=== PATIENT | female | born 1975 | race African-American/Black ===

== ENCOUNTER 2017-05-14 16:02 | Emergency (ER) | payer MEDICAID ==
[~2017-05-14] VITALS: Ht 170.2 cm; Wt 136.2 kg
[~2017-05-14 16:02] MED LIST: ASPI-247 PO; CIPR-173; CYA100I IM; PYRIDIUM; SIMV-13 PO
[2017-05-14 17:30] VITALS: BP 138/94
== END 2017-05-14 18:16 | disposition home or self-care (01) ==
LOC: ER 16:07
DX: J20.9 Acute bronchitis, unspecified (principal); H66.91 Otitis media, unspecified, right ear
CPT/HCPCS: 71020

== ENCOUNTER 2022-08-23 07:29 | Emergency (ER) | payer OTHER, MEDICAID ==
[~2022-08-23] VITALS: Ht 170.2 cm; Wt 163.0 kg
[2022-08-23 08:55] VITALS: BP 153/97
[2022-08-23] MEDS ORDERED: AZIT500T66 PO (09:38)
[2022-08-23] MEDS ORDERED: BENZ100C19 PO (09:38)
== END 2022-08-23 09:59 | disposition home or self-care (01) ==
LOC: ER 07:29
DX: J02.9 Acute pharyngitis, unspecified (principal); J20.9 Acute bronchitis, unspecified; F41.9 Anxiety disorder, unspecified; E78.5 Hyperlipidemia, unspecified; Z86.73 Personal history of transient ischemic attack (TIA), and cerebral infarction without residual deficits
CPT/HCPCS: 71045

== ENCOUNTER 2022-10-07 13:01 | Inpatient (IN) | payer OTHER, MEDICAID ==
[~2022-10-07] VITALS: Ht 170.2 cm; Wt 163.0 kg
[~2022-10-07 13:01] MED LIST changes: +AZIT500T66 PO; +BENZ100C19 PO
[2022-10-07 13:57] LABS: Albumin 3.3 g/dL (3.4-5.0); Calcium 8.7 mg/dL (8.5-10.1); Magnesium 2.2 mg/dL (1.6-2.6); Potassium 4.1 mmol/L (3.5-5.1)
[2022-10-07 13:59] LABS: INR 0.96 (0.9-1.15); Partial Thromboplastin Time 27.3 sec (24.6-33.4)
[2022-10-07 14:02] LABS: BUN/Creatinine Ratio 11.3; Bilirubin, Total 0.4 mg/dL (0.2-1.0); Total Protein 6.7 g/dL (6.4-8.2)
[2022-10-07 14:09] LABS: Basophils # (auto) 0.1 10 ^3/uL (0-0.2); Eosinophils # (auto) 0.2 10 ^3/uL (0-0.8); Eosinophils % (auto) 3.8 % (0.0-7.0); Hematocrit 38.6 % (36.0-46.0); Hemoglobin 12.3 g/dL (12.2-16.2); Lymphocytes # (auto) 2.2 10 ^3/uL (0.4-5.4); Lymphocytes % (auto) 39.2 % (10.0-50.0); Mean Corpuscular Hemoglobin 30.1 pg (28.0-32.0); Monocytes # (auto) 0.5 10 ^3/uL (0-1.3); Monocytes % (auto) 8.5 % (0.0-12.0); Neutrophils # (auto) 2.6 10 ^3/uL (1.6-8.6); Neutrophils % (auto) 47.5 % (37.0-80.0); Red Cell Distribution Width 14.3 % (11.8-14.3); White Blood Cell 5.6 10^3/uL (4.4-10.8)
[2022-10-07 14:18] LABS: Urine Bacteria NONE SEEN /hpf (None Seen); Urine Blood Negative /uL (Negative); Urine Specific Gravity 1.004 (1.001-1.035); Urine WBC 1 /hpf (0 - 5)
[2022-10-07] MEDS ORDERED: hydrALAZINE HCL 20 MG/ML VL IV PRN (20:45)
[2022-10-07] MEDS ORDERED: ACETAMINOPHEN 325 MG TAB PO PRN (20:45)
[2022-10-07] MEDS ORDERED: PANTOPRAZOLE 40 MG/10 ML VIAL INJ IV ONE (20:45)
[2022-10-07] MEDS ORDERED: NITROGLYCERIN 0.4 MG SL TAB SL PRN (20:45)
[2022-10-07] MEDS ORDERED: MORPHINE SULFATE INJ 2 MG/ml SYRG IV PRN (20:45)
[2022-10-07] MEDS ORDERED: SODIUM CHLORIDE 0.9% 1,000 ML IV SCH (20:45)
[2022-10-07 21:10] LABS: Cholesterol 244 mg/dL (< 200)
[2022-10-07 21:13] LABS: HDL Cholesterol 58 mg/dL (40-59); LDL Cholesterol 177 mg/dL (< 100); Triglycerides 130 mg/dL (< 150)
[2022-10-07] MEDS: ENOXAPARIN SOD 60 MG/0.6 ML SYRINGE SC SCH (22:34)
[2022-10-08 05:01] LABS: Basophils # (auto) 0.1 10 ^3/uL (0-0.2); Basophils % (auto) 0.9 % (0.0-2.0); Eosinophils # (auto) 0.2 10 ^3/uL (0-0.8); Eosinophils % (auto) 3.6 % (0.0-7.0); Hematocrit 35.9 % (36.0-46.0); Hemoglobin 11.6 g/dL (12.2-16.2); Lymphocytes # (auto) 1.9 10 ^3/uL (0.4-5.4); Lymphocytes % (auto) 32.7 % (10.0-50.0); Mean Corpuscular Hemoglobin 29.4 pg (28.0-32.0); Mean Corpuscular Hgb Conc. 32.3 g/dL (32.0-36.0); Mean Corpuscular Volume 91.1 fL (80.0-100.0); Monocytes # (auto) 0.4 10 ^3/uL (0-1.3); Monocytes % (auto) 7.3 % (0.0-12.0); Neutrophils # (auto) 3.2 10 ^3/uL (1.6-8.6); Neutrophils % (auto) 55.5 % (37.0-80.0); Nucleated Red Blood Cells % 0.1 %; Red Blood Cells 3.94 10^6/uL (4.0-5.20); Red Cell Distribution Width 14.2 % (11.8-14.3); White Blood Cell 5.8 10^3/uL (4.4-10.8)
[2022-10-08 05:15] LABS: Potassium 3.8 mmol/L (3.5-5.1)
[2022-10-08 05:20] LABS: Albumin 3.2 g/dL (3.4-5.0); BUN/Creatinine Ratio 14.9; Bilirubin, Total 0.4 mg/dL (0.2-1.0); Calcium 8.3 mg/dL (8.5-10.1); Total Protein 6.6 g/dL (6.4-8.2)
[2022-10-08] MEDS ORDERED: ASPirin 81 mg TAB PO SCH (10:00)
[2022-10-08] MEDS ORDERED: PANTOPRAZOLE 40 MG/10 ML VIAL INJ IV SCH (10:00)
[2022-10-08] MEDS: ENOXAPARIN SOD 60 MG/0.6 ML SYRINGE SC SCH (11:33)
[2022-10-08 12:05] VITALS: BP 112/86
[2022-10-08] MEDS ORDERED: ATOR20TA50 PO (13:10)
[2022-10-08] MEDS ORDERED: ASPI-325 PO (13:10)
[2022-10-08] MEDS ORDERED: ATORVASTATIN 20 MG TAB PO SCH (22:00)
== END 2022-10-08 14:36 | disposition home or self-care (01) | DRG 313 ==
LOC: EDBD 13:01 → ER 13:01 → TELE 20:34
PROVIDERS: ADMIT Nurse Practitioner Family; ATTEND Internal Medicine
DX: R07.89 Other chest pain (principal); Z68.43 Body mass index [BMI] 50.0-59.9, adult; E44.1 Mild protein-calorie malnutrition; E03.9 Hypothyroidism, unspecified; E66.01 Morbid (severe) obesity due to excess calories; E78.5 Hyperlipidemia, unspecified; F20.9 Schizophrenia, unspecified; F31.9 Bipolar disorder, unspecified; Z20.822 Contact with and (suspected) exposure to COVID-19; R73.03 Prediabetes; J45.909 Unspecified asthma, uncomplicated; I10 Essential (primary) hypertension; F41.9 Anxiety disorder, unspecified; Z86.73 Personal history of transient ischemic attack (TIA), and cerebral infarction without residual deficits
CPT/HCPCS: 36415; 71045; 80053; 80061; 81001; 81025; 83036; 83735; 83880; 84443; 84484; 85025; 85379; 85610; 85730; 87426; 93005; 93306; C9113; G0378

== ENCOUNTER 2023-07-13 05:37 | Emergency (ER) | payer OTHER, MEDICAID ==
[~2023-07-13] VITALS: Ht 170.2 cm; Wt 152.3 kg
[~2023-07-13 05:37] MED LIST changes: +ASPI-325 PO; +ATOR20TA50 PO; -SIMV-13 PO; +SIMV40TA18 PO
[2023-07-13 07:06] LABS: Basophils # (auto) 0.1 10 ^3/uL (0-0.2); Eosinophils # (auto) 0.1 10 ^3/uL (0-0.8); Monocytes # (auto) 0.5 10 ^3/uL (0-1.3); Red Cell Distribution Width 13.7 % (11.8-14.3)
[2023-07-13 07:09] LABS: Basophils % (auto) 0.7 % (0.0-2.0); Eosinophils % (auto) 1.2 % (0.0-7.0); Hematocrit 37.5 % (36.0-46.0); Hemoglobin 12.8 g/dL (12.2-16.2); Lymphocytes # (auto) 1.4 10 ^3/uL (0.4-5.4); Lymphocytes % (auto) 17.7 % (10.0-50.0); Mean Corpuscular Hemoglobin 30.8 pg (28.0-32.0); Mean Corpuscular Hgb Conc. 34.1 g/dL (32.0-36.0); Mean Corpuscular Volume 90.5 fL (80.0-100.0); Neutrophils # (auto) 5.8 10 ^3/uL (1.6-8.6); Neutrophils % (auto) 74.4 % (37.0-80.0); Red Blood Cells 4.14 10^6/uL (4.0-5.20); White Blood Cell 7.8 10^3/uL (4.4-10.8)
[2023-07-13 07:13] LABS: Urine Bacteria NONE SEEN /hpf (None Seen); Urine Blood 3+ /uL (Negative); Urine Clarity HAZY (Clear); Urine Color PINK (Yellow); Urine Mucus FEW (None Seen); Urine Protein, UAD 1+ (Negative); Urine Specific Gravity 1.024 (1.001-1.035); Urine WBC 70 /hpf (0 - 5); Urine pH 6.5 (5.0-8.0)
[2023-07-13 07:42] LABS: Alanine Aminotransferase 10 U/L (7-40); Albumin 4.6 g/dL (3.2-4.8); Alkaline Phosphatase 92 U/L (46-116); Anion Gap 8 (5-15); Aspartate Aminotransferase 12 U/L (13-40); Bilirubin, Total 0.8 mg/dL (0.2-1.0); Blood Urea Nitrogen 7 mg/dL (9-23); Calcium 9.5 mg/dL (8.5-10.1); Carbon Dioxide 24 mmol/L (20-30); Chloride 106 mmol/L (98-107); Glucose 126 mg/dL (74-106); Potassium 3.6 mmol/L (3.5-5.1); Sodium 138 mmol/L (136-145); Total Protein 7.5 g/dL (5.7-8.2)
[2023-07-13] MEDS ORDERED: cefTRIAXone SOD 1,000 MG VL IM ONE (10:00)
[2023-07-13 10:53] VITALS: BP 145/86; PULSE 77; RESP 18; TEMP 98.7; O2SAT 97
[2023-07-13] MEDS ORDERED: NITR-87 PO (11:44)
== END 2023-07-13 13:45 | disposition home or self-care (01) ==
LOC: ER 05:37
DX: N39.0 Urinary tract infection, site not specified (principal); D21.9 Benign neoplasm of connective and other soft tissue, unspecified; F41.9 Anxiety disorder, unspecified; Z79.899 Other long term (current) drug therapy; Z79.82 Long term (current) use of aspirin; Z86.73 Personal history of transient ischemic attack (TIA), and cerebral infarction without residual deficits; Z98.890 Other specified postprocedural states
CPT/HCPCS: 36415; 76856; 80053; 81001; 81025; 85025; 86850; 86900; 86901; 96372; 99285; J0696

== ENCOUNTER 2025-06-04 19:59 | Emergency (ER) | payer MEDICAID, OTHER ==
[~2025-06-04] VITALS: Ht 170.2 cm; Wt 164.7 kg
[~2025-06-04 19:59] MED LIST changes: +IBUP-1456 PO; +NITR-87 PO
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
[2025-06-04 21:20] LABS: Hematocrit 40.3 % (36.0-46.0); Hemoglobin 13.9 g/dL (12.2-16.2); Mean Corpuscular Hemoglobin 31.6 pg (28.0-32.0); Mean Corpuscular Volume 91.9 fL (80.0-100.0); Nucleated Red Blood Cells % 0.1 %
[2025-06-04 21:24] LABS: Chloride 105 mmol/L (98-107); Potassium 3.8 mmol/L (3.5-5.1); Sodium 140 mmol/L (136-145)
[2025-06-04 21:25] LABS: Anion Gap 7 (5-15); Calcium 9.3 mg/dL (8.7-10.4); Carbon Dioxide 28 mmol/L (20-31)
[2025-06-04 21:30] LABS: BUN/Creatinine Ratio 8.9 (10.0-20.0); Glucose 105 mg/dL (74-106)
--- NOTE | 2025-06-04 21:35 | DVH ---
Exam: XY KUB ABDOMEN SINGLE VIEW Indication: Constipation Comparison: None Technique: 2 radiographic views of the abdomen. Findings: Nonobstructive bowel gas pattern noted. There is no definite evidence for pneumoperitoneum. No abnormal calcifications noted. Fairly large volume of stool throughout the colon. Impression: Fairly large volume of stool throughout the colon
[2025-06-04 21:48] LABS: Blood Urea Nitrogen 7 mg/dL (9-23)
[2025-06-04 21:50] LABS: Urine Budding Yeast FEW /hpf (None Seen); Urine Protein, UAD Negative (Negative)
[2025-06-04 21:57] LABS: Vaginal Trichomonas Not Present
[2025-06-04 21:58] LABS: Vaginal Bacteria Few; Vaginal Clue Cells None Seen; Vaginal Epithelial Cells Moderate
[2025-06-04] MEDS ORDERED: NITR-87 PO (23:47)
[2025-06-04 23:48] VITALS: BP 128/59; PULSE 70; RESP 18; TEMP 98.5; O2SAT 99
[2025-06-04] MEDS: AZITHROMYCIN 250 MG TAB PO ONE (23:49)
[2025-06-04] MEDS ORDERED: LACT10SO3 PO (23:50)
[2025-06-04] MEDS: cefTRIAXone SOD 500 MG VL IM ONE (23:50)
[2025-06-04] MEDS ORDERED: IBUP-1455 PO (23:50)
[2025-06-04] MEDS ORDERED: ZOFR4T PO (23:50)
[2025-06-04] MEDS ORDERED: ACET500T58 PO (23:50)
[2025-06-04] MEDS: ONDANSETRON ODT 4 MG TAB PO ONE (23:50)
[2025-06-04] MEDS: HYDROcodone-ACET 10/325MG TAB PO ONE (23:50)
[2025-06-06 15:07] LABS: Chlamydia Trachomatis, NAA Negative (Negative); Neisseria gonorrhoeae, NAA Negative (Negative)
== END 2025-06-05 | disposition home or self-care (01) ==
LOC: ER 19:59
DX: K59.00 Constipation, unspecified (principal); N39.0 Urinary tract infection, site not specified; Z20.2 Contact with and (suspected) exposure to infections with a predominantly sexual mode of transmission; Z86.73 Personal history of transient ischemic attack (TIA), and cerebral infarction without residual deficits; Z79.1 Long term (current) use of non-steroidal anti-inflammatories (NSAID); Z79.899 Other long term (current) drug therapy; Z79.82 Long term (current) use of aspirin
CPT/HCPCS: 36415; 74018; 80048; 81001; 85025; 87210; 87491; 87591; 96372; 99284; J0696; Q0162